=== PATIENT | female | born 1950 | race Caucasian/White ===

== ENCOUNTER 2018-03-16 06:47 | Day surgery (SDC) | payer BC ==
[2018-03-16] MEDS ORDERED: SOD CHLORIDE 0.45% 1,000 ML IV (07:30)
[2018-03-16 07:34] LABS: ADD MAN DIFF? NO
[2018-03-16 07:41] LABS: BASOPHILS % 0.6 % (0.0-2.0); EOSINOPHILS # 0.1 10^3/ul (0.0-0.5); EOSINOPHILS % 2.1 % (0.0-7.0); HEMATOCRIT 40.8 % (37.0-47.0); HEMOGLOBIN 13.7 g/dl (12.0-16.0); LYMPHOCYTES % 39.5 % (15.0-51.0); MEAN CORPUSCULAR HEMOGLOBIN 29.8 pg (29.0-33.0); MEAN CORPUSCULAR HGB CONC 33.6 g/dl (32.0-37.0); MEAN CORPUSCULAR VOLUME 88.7 fl (82.0-101.0); MEAN PLATELET VOLUME 9.3 fl (7.4-10.4); MONOCYTE # 0.5 10^3/ul (0.3-0.9); MONOCYTES % 8.9 % (0.0-11.0); NEUTROPHIL # 2.5 10^3/ul (1.6-7.5); NEUTROPHILS % 48.7 % (39.0-77.0); PLATELET COUNT 219 10^3/UL (140-415); RED CELL DISTRIBUTION WIDTH 12.3 % (11.5-14.5)
[2018-03-16 07:41] LABS: WHITE BLOOD COUNT 5.2 10^3/ul (4.8-10.8)
[2018-03-16] MEDS: FAMOTIDINE 20 MG TAB PO (07:44)
[2018-03-16] MEDS: DIPHENHYDRAMINE 50 MG CAP PO (07:44)
[2018-03-16] MEDS: DIAZEPAM 5 MG TAB PO (07:44)
[2018-03-16 07:58] LABS: INR 0.97
[2018-03-16 08:05] LABS: ANION GAP 11 (8-16); BLOOD UREA NITROGEN 14 mg/dl (7-20); CALCIUM 10.1 mg/dl (8.4-10.2); CARBON DIOXIDE 28 mmol/L (21-31); CHLORIDE 107 mmol/L (97-110); CHOL/HDL RATIO 4.2 RATIO; CHOLESTEROL 186 mg/dl (100-200); CREATININE 0.69 mg/dl (0.44-1.00); GLUCOSE 96 mg/dl (70-220); HDL CHOLESTEROL 44 mg/dl (35-98); LDL CHOLESTEROL,CALCULATED 117 mg/dl; PARTIAL THROMBOPLASTIN TIME 37.7 Sec (23.0-35.0); SODIUM 142 mmol/L (135-144); TRIGLYCERIDES 127 mg/dl (0-149)
[2018-03-16] MEDS ORDERED: IODIXANOL LOCM 100 ML BTL (08:19)
[2018-03-16] MEDS ORDERED: SOD CHLORIDE 0.9% 500 ML (08:19)
[2018-03-16] MEDS ORDERED: HEPARIN 1000 UNITS/ML 10 ML INJ (08:19)
[2018-03-16] MEDS ORDERED: LIDOCAINE 1% (MDV) 20 ML INJ (08:19)
[2018-03-16] MEDS ORDERED: NITROGLYCERIN (IC) 100 MCG/ML INJ (08:20)
[2018-03-16] MEDS ORDERED: VERAPAMIL 5 MG INJ (08:20)
[2018-03-16] MEDS ORDERED: FENTAnyl 50 MCG/ML VIAL (08:20)
[2018-03-16] MEDS ORDERED: MIDAZOLAM 1 MG/ML 2 ML INJ (08:20)
[2018-03-16] MEDS ORDERED: SOD CHLORIDE 0.9% 1,000 ML IV (09:49)
[2018-03-16] MEDS ORDERED: ACETAMINOPHEN 325 MG TAB PO (10:00)
[2018-03-16] MEDS ORDERED: AL HYDROX/MG HYDROX/SIMETH 30 ML CUP PO (10:00)
[2018-03-16] MEDS ORDERED: morphine 2 MG INJ IV (10:00)
[2018-03-16] MEDS ORDERED: ONDANSETRON 4 MG INJ IV (10:00)
== END 2018-03-16 15:28 | disposition home or self-care (01) ==
LOC: SDS 06:47
DX: I34.0 Nonrheumatic mitral (valve) insufficiency (principal); I10 Essential (primary) hypertension; R07.2 Precordial pain; I07.1 Rheumatic tricuspid insufficiency; R94.31 Abnormal electrocardiogram [ECG] [EKG]
CPT/HCPCS: 71045; 80048; 80061; 85025; 85610; 85730; 93005; 93458